=== PATIENT | female | born 1990 | race African-American/Black ===

== ENCOUNTER 2025-02-01 05:00 | Inpatient (IN) | payer OTHER ==
[2025-02-01] MEDS: ELECTROLYTE-148 SOLN 1,000 ML IV SCH ×2 (05:40→15:55)
[2025-02-01] MEDS: AMPICILLIN - 2 GM in SODIUM CHLORIDE 100 ML IVPB ONE (05:48)
[2025-02-01] MEDS: MAGNESIUM 4GM/H20 - 4 GM/100 ML IVPB IVPB ONE (05:48)
[2025-02-01] MEDS: BETAMET ACET/BETAMET NA PH 30 MG/5 ML VIAL IM ONE (06:00)
[2025-02-01] MEDS ORDERED: MAGNESIUM SULFATE 20GM/500ML - 20 GM/500 ML INFUS.BAG ONE (06:27)
[2025-02-01] MEDS ORDERED: TERBUTALINE SULFATE 1 MG/1 ML VIAL SQ ONE ×2 (06:27→06:28)
[2025-02-01] MEDS: MAGNESIUM SULFATE 20GM/500ML - 20 GM/500 ML INFUS.BAG IVPB SCH (06:30)
[2025-02-01 06:41] VITALS: BMI 21.1
[2025-02-01] MEDS: TERBUTALINE SULFATE 1 MG/1 ML VIAL SQ ONE (06:45)
[2025-02-01 07:01] LABS: ABSOLUTE IMMATURE GRANULOCYTES 0.04 x10^3/uL (0.0-0.031); BASOPHILS # 0.02 x10^3/uL (0.01-0.08); EOSINOPHIL % 0.1 % (0.7-5.8); EOSINOPHILS # 0.01 x10^3/uL (0.04-0.36); HEMATOCRIT 34.6 % (34.1-44.9); HEMOGLOBIN 11.7 g/dL (11.2-15.7); MCHC 33.8 g/dl (32.2-35.5); MEAN CELL VOLUME 78.5 fl (79.4-94.8); MEAN PLT VOLUME 9.1 fl (9.4-12.3); MONOCYTE # 0.69 x10^3/uL (0.24-0.86); MONOCYTE % 6.2 % (4.7-12.5); PLATELET COUNT # 415 x10^3/uL (182-369); RDW 13.2 % (12.1-16.8)
[2025-02-01 07:18] LABS: POTASSIUM 3.9 mmol/L (3.5-5.1)
[2025-02-01 07:21] LABS: BLOOD UREA NITROGEN 6.6 mg/dL (7-18)
[2025-02-01 07:24] LABS: CREATININE 0.5 mg/dL (0.55-1.3)
[2025-02-01 07:25] LABS: INR 1.06 (0.83-1.09); PROTHROMBIN TIME (PATIENT) 11.7 SEC (9.7-13.0)
[2025-02-01 07:26] LABS: ACTIVATED PTT 25.2 SECONDS (25.2-36.5)
[2025-02-01] MEDS ORDERED: FENTANYL CITRATE/PF 50 MCG/ML VIAL ONE (07:45)
[2025-02-01] MEDS ORDERED: morphine SULFATE/PF 1 MG/2 ML (2cc Syringe - QUVA) ONE (07:45)
[2025-02-01] MEDS ORDERED: ONDANSETRON 4 MG/2 ML VIAL ONE (08:17)
[2025-02-01] MEDS ORDERED: KETOROLAC TROMETHAMINE 30 MG/1 ML VIAL ONE (08:17)
[2025-02-01] MEDS ORDERED: ceFAZolin SODIUM 1 GM VIAL ONE (08:17)
[2025-02-01 08:48] LABS: CORD HCO3 18.6 mmHg (20-29); CORD PCO2 31.2 mmHg (30-78); CORD pH 7.394 (7.14-7.44)
[2025-02-01] MEDS ORDERED: METHYLERGONOVINE MALEATE 0.2 MG/1 ML AMP IM PRN (08:54)
[2025-02-01] MEDS ORDERED: ACETAMINOPHEN 325 MG TABLET (FP) PO PRN (08:54)
[2025-02-01] MEDS ORDERED: SIMETHICONE 80 MG TAB.CHEW (FP) PO PRN (08:54)
[2025-02-01] MEDS ORDERED: SENNOSIDES/DOCUSATE COMBO (SENNA PLUS) TABLET (UD) PO PRN (08:54)
[2025-02-01 08:55] LABS: CORD BASE EXCESS -5.7 mmol/L (0-2); CORD HCO3 18.3 mmHg (20-29); CORD PCO2 31.8 mmHg (30-78); CORD pH 7.379 (7.14-7.44)
[2025-02-01] MEDS ORDERED: OXYTOCIN 20 UNITS in 0.9% NS 20 UNIT/1,000 ML INFUS.BAG IV ONE (09:07)
[2025-02-01] MEDS: OXYTOCIN 20 UNITS in 0.9% NS 20 UNIT/1,000 ML INFUS.BAG IV SCH (09:10)
[2025-02-01] MEDS: PRENATAL VITAMINS W/ FOLIC ACID TABLET (FP) PO SCH (10:00)
[2025-02-01 12:11] LABS: HIV INTERPRETATION NEGATIVE (NEGATIVE)
[2025-02-01] MEDS ORDERED: oxyCODONE HCL 5 MG TABLET PO PRN ×2 (20:54)
[2025-02-02] MEDS: IBUPROFEN 800 MG/8 ML IJ IVPB PRN (00:31)
[2025-02-02 07:28] LABS: BASOPHILS # 0.02 x10^3/uL (0.01-0.08); HEMATOCRIT 29.3 % (34.1-44.9); HEMOGLOBIN 9.8 g/dL (11.2-15.7); MCHC 33.4 g/dl (32.2-35.5); MEAN CELL VOLUME 80.1 fl (79.4-94.8); MEAN PLT VOLUME 9.1 fl (9.4-12.3); MONOCYTE % 7.9 % (4.7-12.5); PLATELET COUNT # 385 x10^3/uL (182-369); RDW 13.7 % (12.1-16.8)
[2025-02-02] MEDS ORDERED: BISACODYL 10 MG SUPP.RECT RC PRN (08:54)
[2025-02-02] MEDS: FERROUS SO4 325 MG TABLET (FP) PO SCH (10:20)
[2025-02-02] MEDS: IBUPROFEN 600 MG TABLET (FP) PO PRN (13:51)
[2025-02-02 22:35] VITALS: BP 111/69; PULSE 92; RESP 18; TEMP 98.8
== END 2025-02-02 23:15 | disposition home or self-care (01) | DRG 540 ==
LOC: JLDR 05:00 → J3W 11:20
PROVIDERS: ADMIT Obstetrics & Gynecology; ATTEND Obstetrics & Gynecology
PROC: 10D00Z1 Extraction of Products of Conception, Low, Open Approach (ICD-10-PCS; principal; 2025-02-01)
DX: O76 Abnormality in fetal heart rate and rhythm complicating labor and delivery (principal); O60.12X0 Preterm labor second trimester with preterm delivery second trimester, not applicable or unspecified; O34.12 Maternal care for benign tumor of corpus uteri, second trimester; D25.9 Leiomyoma of uterus, unspecified; Z3A.25 25 weeks gestation of pregnancy; Z37.0 Single live birth
CPT/HCPCS: 36415; 36600; 80048; 82803; 85025; 85610; 85730; 86780; 86850; 86900; 86901; 87389; 88307-TC; 94010; 96372